=== PATIENT | male | born 1935 | race African-American/Black ===

== ENCOUNTER 2016-07-25 16:57 | Inpatient (IN) | payer MEDICARE, MEDICAID ==
[~2016-07-25] VITALS: Ht 170.2 cm; Wt 78.0 kg
[2016-07-25] MEDS ORDERED: LISI-660 PO (17:55)
[2016-07-25] MEDS ORDERED: FAMO20 PO (17:55)
[2016-07-25 18:01] LABS: GLUCOSE,POINT OF CARE 126 MG/DL (70-110)
[2016-07-25 18:29] LABS: EOSINOPHILS % (AUTO) 7.6 % (1.0-6.0); HEMATOCRIT 35.7 % (41-53); HEMOGLOBIN 11.5 g/dL (13.5-17.5); LYMPHOCYTES # (AUTO) 1.1 K/uL (1.0-4.8); LYMPHOCYTES % (AUTO) 12.6 % (22.0-44.0); MEAN CORPUSCULAR HGB CONC 32.2 G/dL (31.0-37.0); MEAN CORPUSCULAR VOLUME 93 fL (80-100); MONOCYTES # (AUTO) 0.8 K/uL (0.1-1.0); MONOCYTES % (AUTO) 9.1 % (2.0-9.0); NEUTROPHILS # (AUTO) 6.3 K/uL (1.8-7.7); NEUTROPHILS % (AUTO) 70.7 % (40.0-70.0); PLATELET COUNT (AUTO) 373 K/uL (150-450); RED BLOOD CELL COUNT(AUTO) 3.84 MIL/uL (4.50-5.90); RED CELL DISTRIBUTION WIDTH 12.9 % (11.5-14.5); WHITE BLOOD COUNT (AUTO) 8.9 K/uL (4.5-11.0)
[2016-07-25 18:42] LABS: ANION GAP 9 mmol/L (8-16); CARBON DIOXIDE 27 mmol/L (22-29); CHLORIDE 100 mmol/L (98-107); CREATININE 1.07 mg/dL (0.60-1.30); GLOMERULAR FILTR. RATE CALC > 60 mL/min (>60); POTASSIUM 4.6 mmol/L (3.5-5.1); SODIUM SERUM 136 mmol/L (136-145); UREA NITROGEN, BLOOD 17 mg/dL (7-18)
[2016-07-25 18:56] LABS: B-TYPE NATRIURETIC PEPTIDE 15 pg/mL (0-100)
[2016-07-25 19:07] LABS: ALANINE AMINOTRANSFERASE 36 U/L (12-78); ALBUMIN 2.9 g/dL (3.4-5.0); ASPARTATE AMINOTRANSFERASE 19 U/L (15-37); BILIRUBIN,TOTAL 0.3 mg/dL (0.1-1.0); CREATINE KINASE MB 0.7 ng/mL (0-5); CREATINE KINASE, TOTAL 89 U/L (39-308)
[2016-07-25] MEDS ORDERED: ONDANSETRON HCL 4 MG/2 ML VIAL IVP PRN (20:30)
[2016-07-25] MEDS ORDERED: ACETAMINOPHEN 325 MG TABLET PO PRN (20:30)
[2016-07-25 21:41] VITALS: BP 143/65
[2016-07-26] VITALS (7 sets, daily range): BP systolic 108–133; BP diastolic 47–78
[2016-07-26] MEDS: DEXTROSE 5%-0.45% SODIUM CHL 1,000 ML IV SCH ×2 (06:07→21:40)
[2016-07-26] MEDS: HEPARIN SODIUM,PORCINE 5,000 UNITS/ML VIAL SQ SCH ×2 (08:55→21:39)
[2016-07-26] MEDS: LISINOPRIL 5 MG TABLET PO SCH (08:55)
[2016-07-26] MEDS: FAMOTIDINE 20 MG TABLET PO SCH (08:55)
[2016-07-26] MEDS: LevETIRAcetam 500 MG TABLET PO SCH ×2 (08:56→21:40)
[2016-07-26] MEDS: TAMSULOSIN HCL 0.4 MG CAPSULE PO SCH (08:56)
[2016-07-26] MEDS: FINASTERIDE 5 MG TABLET PO SCH (09:00)
[2016-07-27 00:42] VITALS: BP 107/59
[2016-07-27 04:41] VITALS: BP 110/65
[2016-07-27 07:51] VITALS: BP 129/96
[2016-07-27] MEDS: LevETIRAcetam 500 MG TABLET PO SCH ×2 (08:22→20:38)
[2016-07-27] MEDS: FAMOTIDINE 20 MG TABLET PO SCH (08:22)
[2016-07-27] MEDS: LISINOPRIL 5 MG TABLET PO SCH (08:22)
[2016-07-27] MEDS: HEPARIN SODIUM,PORCINE 5,000 UNITS/ML VIAL SQ SCH ×2 (08:22→20:39)
[2016-07-27] MEDS: TAMSULOSIN HCL 0.4 MG CAPSULE PO SCH (08:22)
[2016-07-27] MEDS: FINASTERIDE 5 MG TABLET PO SCH (08:22)
[2016-07-27] MEDS ORDERED: GADOBUTROL 1 MMOL/ML 10 ML VIAL IVP ONE (08:35)
[2016-07-27] MEDS ORDERED: 0.9% SODIUM CHLORIDE 10 ML SYRINGE IVP PRN (16:15)
[2016-07-27 19:22] VITALS: BP 137/80
[2016-07-27] MEDS: DEXTROSE 5%-0.45% SODIUM CHL 1,000 ML IV SCH (21:22)
[2016-07-27 23:01] VITALS: BP 141/75
[2016-07-28 03:23] VITALS: BP 138/85
[2016-07-28 07:53] VITALS: BP 137/77
[2016-07-28] MEDS: LISINOPRIL 5 MG TABLET PO SCH (08:20)
[2016-07-28] MEDS: LevETIRAcetam 500 MG TABLET PO SCH ×2 (08:20→20:02)
[2016-07-28] MEDS: FINASTERIDE 5 MG TABLET PO SCH (08:20)
[2016-07-28] MEDS: TAMSULOSIN HCL 0.4 MG CAPSULE PO SCH (08:20)
[2016-07-28] MEDS: FAMOTIDINE 20 MG TABLET PO SCH (08:20)
[2016-07-28] MEDS: HEPARIN SODIUM,PORCINE 5,000 UNITS/ML VIAL SQ SCH (08:21)
[2016-07-28] MEDS ORDERED: IOVERSOL 350 MG/ML 100 ML VIAL ONE (10:12)
[2016-07-28] MEDS ORDERED: SODIUM CHLORIDE 0.9% 100 ML ONE (10:13)
[2016-07-28] MEDS ORDERED: BARIUM SULFATE 0.1% SUSPENSION 450 ML BOTTLE ONE (10:13)
[2016-07-28 11:30] VITALS: BP 135/80
[2016-07-28 15:33] VITALS: BP 137/85
[2016-07-28 19:52] VITALS: BP 153/88
[2016-07-28] MEDS: DEXTROSE 5%-0.45% SODIUM CHL 1,000 ML IV SCH (20:03)
[2016-07-28 23:00] VITALS: BP 137/87
[2016-07-29 04:37] VITALS: BP 139/82
[2016-07-29 08:00] VITALS: BP 138/72
[2016-07-29] MEDS: TAMSULOSIN HCL 0.4 MG CAPSULE PO SCH (08:15)
[2016-07-29] MEDS: LISINOPRIL 5 MG TABLET PO SCH (08:15)
[2016-07-29] MEDS: LevETIRAcetam 500 MG TABLET PO SCH ×2 (08:15→20:22)
[2016-07-29] MEDS: FINASTERIDE 5 MG TABLET PO SCH (08:15)
[2016-07-29] MEDS: FAMOTIDINE 20 MG TABLET PO SCH (08:15)
[2016-07-29] MEDS: DEXTROSE 5%-0.45% SODIUM CHL 1,000 ML IV SCH (10:35)
[2016-07-29 12:00] VITALS: BP 135/73
[2016-07-29 16:00] VITALS: BP 124/77
[2016-07-29 19:10] VITALS: BP 141/79
[2016-07-29 23:15] VITALS: BP 127/70
[2016-07-30 04:00] VITALS: BP 131/63
[2016-07-30 08:21] VITALS: BP 125/72
[2016-07-30] MEDS: FAMOTIDINE 20 MG TABLET PO SCH (08:29)
[2016-07-30] MEDS: FINASTERIDE 5 MG TABLET PO SCH (08:29)
[2016-07-30] MEDS: LevETIRAcetam 500 MG TABLET PO SCH (08:29)
[2016-07-30] MEDS: TAMSULOSIN HCL 0.4 MG CAPSULE PO SCH (08:29)
[2016-07-30] MEDS: LISINOPRIL 5 MG TABLET PO SCH (08:29)
[2016-07-30] MEDS: DEXTROSE 5%-0.45% SODIUM CHL 1,000 ML IV SCH (10:02)
[2016-07-30 11:42] VITALS: BP 118/64
[2016-07-30] MEDS ORDERED: FINA5TAB41 PO (12:41)
[2016-07-30] MEDS ORDERED: TAMS0.4C32 PO (12:42)
[2016-07-30] MEDS ORDERED: LEVE500T53 PO (12:42)
[2016-11-04] MEDS ORDERED: MOM30 PO (10:14)
[2016-11-04] MEDS ORDERED: ACET-784 PO (10:14)
[2016-11-04] MEDS ORDERED: BISA10S PR (10:14)
== END 2016-07-30 15:10 | DRG 65 ==
LOC: EMS 17:00 → 6N 20:15
PROVIDERS: ADMIT Internal Medicine; ATTEND Internal Medicine
PROC: 4A10X4Z Monitoring of Central Nervous Electrical Activity, External Approach (ICD-10-PCS; principal; 2016-07-27)
DX: I62.9 Nontraumatic intracranial hemorrhage, unspecified (principal); E44.0 Moderate protein-calorie malnutrition; Z68.26 Body mass index [BMI] 26.0-26.9, adult; I10 Essential (primary) hypertension; K59.00 Constipation, unspecified; N40.0 Benign prostatic hyperplasia without lower urinary tract symptoms; E55.9 Vitamin D deficiency, unspecified; G40.909 Epilepsy, unspecified, not intractable, without status epilepticus; N40.1 Benign prostatic hyperplasia with lower urinary tract symptoms; B35.6 Tinea cruris; R26.89 Other abnormalities of gait and mobility; Z79.899 Other long term (current) drug therapy; Z98.890 Other specified postprocedural states; Z91.81 History of falling; Z87.891 Personal history of nicotine dependence; Z86.73 Personal history of transient ischemic attack (TIA), and cerebral infarction without residual deficits; Z80.9 Family history of malignant neoplasm, unspecified; Z82.49 Family history of ischemic heart disease and other diseases of the circulatory system
CPT/HCPCS: 70450; 70553; 71260; 72193; 74160; 82962; 87081; 93005; 95816; 97162; 99285; A9585; J1644; J7050

== ENCOUNTER 2017-05-06 15:33 | Inpatient (IN) | payer MEDICARE, MEDICAID ==
[~2017-05-06] VITALS: Ht 170.2 cm; Wt 60.7 kg
[~2017-05-06 15:33] MED LIST: ACET-784 PO; BISA10S PR; FAMO20 PO; FINA5TAB41 PO; LEVE500T53 PO; LISI-660 PO; MOM30 PO; TAMS0.4C32 PO
[2017-05-06] MEDS ORDERED: VITAD1000 PO (16:04)
[2017-05-06] MEDS ORDERED: ACETAMINOPHEN 500 MG TABLET PO ONE (16:30)
[2017-05-06 17:31] LABS: BASOPHILS % (AUTO) 0.3 % (0.0-2.0); EOSINOPHILS % (AUTO) 10.7 % (1.0-6.0); HEMATOCRIT 31.5 % (41-53); HEMOGLOBIN 10.6 g/dL (13.5-17.5); LYMPHOCYTES # (AUTO) 1.5 K/uL (1.0-4.8); LYMPHOCYTES % (AUTO) 23.8 % (22.0-44.0); MEAN CORPUSCULAR HEMOGLOBIN 31.5 pg (26.0-34.0); MEAN CORPUSCULAR HGB CONC 33.7 G/dL (31.0-37.0); MEAN CORPUSCULAR VOLUME 93 fL (80-100); MONOCYTES # (AUTO) 0.7 K/uL (0.1-1.0); MONOCYTES % (AUTO) 10.1 % (2.0-9.0); NEUTROPHILS # (AUTO) 3.6 K/uL (1.8-7.7); NEUTROPHILS % (AUTO) 55.1 % (40.0-70.0); PLATELET COUNT (AUTO) 320 K/uL (150-450); RED BLOOD CELL COUNT(AUTO) 3.37 MIL/uL (4.50-5.90); RED CELL DISTRIBUTION WIDTH 13.5 % (11.5-14.5); WHITE BLOOD COUNT (AUTO) 6.5 K/uL (4.5-11.0)
[2017-05-06 17:44] LABS: ANION GAP 6 mmol/L (8-16); CARBON DIOXIDE 31 mmol/L (22-29); CHLORIDE 101 mmol/L (98-107); CREATININE 0.96 mg/dL (0.60-1.30); GLOMERULAR FILTR. RATE CALC > 60 mL/min (>60); POTASSIUM 4.2 mmol/L (3.5-5.1); SODIUM SERUM 138 mmol/L (136-145); UREA NITROGEN, BLOOD 20 mg/dL (7-18)
[2017-05-06 18:00] LABS: B-TYPE NATRIURETIC PEPTIDE 22 pg/mL (0-100)
[2017-05-06 18:08] LABS: ALANINE AMINOTRANSFERASE 21 U/L (12-78); ASPARTATE AMINOTRANSFERASE 15 U/L (15-37); BILIRUBIN,TOTAL 0.3 mg/dL (0.1-1.0); CREATINE KINASE MB 1.7 ng/mL (0-5); CREATINE KINASE, TOTAL 249 U/L (39-308); TOTAL PROTEIN, SERUM 7.7 g/dL (6.4-8.2)
[2017-05-06] MEDS ORDERED: ACETAMINOPHEN 325 MG TABLET PO PRN ×2 (21:00→23:30)
[2017-05-06] MEDS ORDERED: 0.9% SODIUM CHLORIDE 10 ML SYRINGE IVP PRN ×2 (21:00→23:30)
[2017-05-06] MEDS ORDERED: ONDANSETRON HCL 4 MG/2 ML VIAL IVP PRN ×2 (21:00→23:30)
[2017-05-06 23:05] VITALS: BP 138/71
[2017-05-06] MEDS ORDERED: BISACODYL 10 MG RECTAL RECTAL SUPPOSITORY PR PRN (23:30)
[2017-05-07 00:30] VITALS: BP 150/78
[2017-05-07] MEDS ORDERED: SODIUM CHLORIDE 0.9% 250 ML IV ONE (01:40)
[2017-05-07] MEDS: LevETIRAcetam 500 MG in DEXTROSE 5%-WATER 100 ML IV SCH ×3 (01:45→23:24)
[2017-05-07 04:00] VITALS: BP 136/74
[2017-05-07 05:57] LABS: ALANINE AMINOTRANSFERASE 22 U/L (12-78); ALBUMIN 2.9 g/dL (3.4-5.0); ANION GAP 4 mmol/L (8-16); ASPARTATE AMINOTRANSFERASE 13 U/L (15-37); BILIRUBIN,TOTAL 0.5 mg/dL (0.1-1.0); CALCIUM, TOTAL 9.2 mg/dL (8.8-10.5); CARBON DIOXIDE 32 mmol/L (22-29); CHLORIDE 102 mmol/L (98-107); CHOL/HDL RATIO 2.8 (4.2-7.3); CREATININE 1.06 mg/dL (0.60-1.30); GLOMERULAR FILTR. RATE CALC > 60 mL/min (>60); PHOSPHORUS 3.7 mg/dL (2.5-4.9); POTASSIUM 4.1 mmol/L (3.5-5.1); SODIUM SERUM 138 mmol/L (136-145); TOTAL PROTEIN, SERUM 7.3 g/dL (6.4-8.2); UREA NITROGEN, BLOOD 18 mg/dL (7-18)
[2017-05-07 06:24] LABS: BASOPHILS % (AUTO) 0.3 % (0.0-2.0); EOSINOPHILS % (AUTO) 10.2 % (1.0-6.0); HEMATOCRIT 30.6 % (41-53); HEMOGLOBIN 10.4 g/dL (13.5-17.5); LYMPHOCYTES # (AUTO) 1.5 K/uL (1.0-4.8); MEAN CORPUSCULAR HEMOGLOBIN 31.6 pg (26.0-34.0); MEAN CORPUSCULAR HGB CONC 33.9 G/dL (31.0-37.0); MEAN CORPUSCULAR VOLUME 93 fL (80-100); MONOCYTES # (AUTO) 0.6 K/uL (0.1-1.0); MONOCYTES % (AUTO) 8.7 % (2.0-9.0); NEUTROPHILS # (AUTO) 4.2 K/uL (1.8-7.7); NEUTROPHILS % (AUTO) 59.8 % (40.0-70.0); PLATELET COUNT (AUTO) 308 K/uL (150-450); RED BLOOD CELL COUNT(AUTO) 3.29 MIL/uL (4.50-5.90); RED CELL DISTRIBUTION WIDTH 13.1 % (11.5-14.5); WHITE BLOOD COUNT (AUTO) 7.1 K/uL (4.5-11.0)
[2017-05-07 08:00] VITALS: BP 121/70
[2017-05-07] MEDS: CHOLECALCIFEROL (VIT D3) 1,000 UNITS TABLET PO SCH (08:32)
[2017-05-07] MEDS: PANTOPRAZOLE SODIUM 40 MG/VIAL IVP SCH (08:33)
[2017-05-07] MEDS: TAMSULOSIN HCL 0.4 MG CAPSULE PO SCH (09:14)
[2017-05-07] MEDS: FINASTERIDE 5 MG TABLET PO SCH (09:14)
[2017-05-07] MEDS ORDERED: MAGNESIUM SULFATE 2 GM in DEXTROSE 5%-WATER 50 ML IV PRN (11:45)
[2017-05-07] MEDS ORDERED: MAGNESIUM OXIDE 400 MG TABLET PO PRN (11:45)
[2017-05-07] MEDS ORDERED: MAGNESIUM SULFATE 4 GM/WATER 100 ML IV PRN (11:45)
[2017-05-07 12:00] VITALS: BP 116/72
[2017-05-07] MEDS ORDERED: GADOBUTROL 1 MMOL/ML 10 ML VIAL IVP ONE (12:28)
[2017-05-07 16:00] VITALS: BP 107/57
[2017-05-07 20:00] VITALS: BP 134/78
[2017-05-08] VITALS (7 sets, daily range): BP systolic 119–138; BP diastolic 67–86
[2017-05-08 05:17] LABS: ANION GAP 2 mmol/L (8-16); CALCIUM, TOTAL 8.8 mg/dL (8.8-10.5); CARBON DIOXIDE 33 mmol/L (22-29); CHLORIDE 103 mmol/L (98-107); CREATININE 1.15 mg/dL (0.60-1.30); GLOMERULAR FILTR. RATE CALC > 60 mL/min (>60); POTASSIUM 4.8 mmol/L (3.5-5.1); SODIUM SERUM 138 mmol/L (136-145); UREA NITROGEN, BLOOD 17 mg/dL (7-18)
[2017-05-08 05:40] LABS: EOSINOPHILS % (AUTO) 13.6 % (1.0-6.0); HEMATOCRIT 29.6 % (41-53); HEMOGLOBIN 10.1 g/dL (13.5-17.5); LYMPHOCYTES # (AUTO) 1.6 K/uL (1.0-4.8); LYMPHOCYTES % (AUTO) 23.2 % (22.0-44.0); MEAN CORPUSCULAR HEMOGLOBIN 31.5 pg (26.0-34.0); MEAN CORPUSCULAR VOLUME 93 fL (80-100); MONOCYTES # (AUTO) 0.6 K/uL (0.1-1.0); MONOCYTES % (AUTO) 9.1 % (2.0-9.0); NEUTROPHILS # (AUTO) 3.7 K/uL (1.8-7.7); NEUTROPHILS % (AUTO) 54.1 % (40.0-70.0); PLATELET COUNT (AUTO) 310 K/uL (150-450); RED BLOOD CELL COUNT(AUTO) 3.19 MIL/uL (4.50-5.90); RED CELL DISTRIBUTION WIDTH 13.2 % (11.5-14.5); WHITE BLOOD COUNT (AUTO) 6.8 K/uL (4.5-11.0)
[2017-05-08] MEDS: FINASTERIDE 5 MG TABLET PO SCH (08:26)
[2017-05-08] MEDS: PANTOPRAZOLE SODIUM 40 MG/VIAL IVP SCH (08:26)
[2017-05-08] MEDS: TAMSULOSIN HCL 0.4 MG CAPSULE PO SCH (08:26)
[2017-05-08] MEDS: CHOLECALCIFEROL (VIT D3) 1,000 UNITS TABLET PO SCH (08:27)
[2017-05-08] MEDS: LevETIRAcetam 500 MG in DEXTROSE 5%-WATER 100 ML IV SCH (11:07)
[2017-05-09] MEDS: LevETIRAcetam 500 MG in DEXTROSE 5%-WATER 100 ML IV SCH ×2 (00:40→11:57)
[2017-05-09 04:51] VITALS: BP 130/66
[2017-05-09 07:05] LABS: BASOPHILS % (AUTO) 0.3 % (0.0-2.0); EOSINOPHILS % (AUTO) 10.9 % (1.0-6.0); HEMATOCRIT 30.4 % (41-53); HEMOGLOBIN 10.3 g/dL (13.5-17.5); LYMPHOCYTES # (AUTO) 1.8 K/uL (1.0-4.8); LYMPHOCYTES % (AUTO) 23.6 % (22.0-44.0); MEAN CORPUSCULAR HEMOGLOBIN 31.3 pg (26.0-34.0); MEAN CORPUSCULAR HGB CONC 33.7 G/dL (31.0-37.0); MEAN CORPUSCULAR VOLUME 93 fL (80-100); MONOCYTES # (AUTO) 0.7 K/uL (0.1-1.0); MONOCYTES % (AUTO) 9.1 % (2.0-9.0); NEUTROPHILS # (AUTO) 4.2 K/uL (1.8-7.7); NEUTROPHILS % (AUTO) 56.1 % (40.0-70.0); PLATELET COUNT (AUTO) 319 K/uL (150-450); RED BLOOD CELL COUNT(AUTO) 3.28 MIL/uL (4.50-5.90); RED CELL DISTRIBUTION WIDTH 13.1 % (11.5-14.5); WHITE BLOOD COUNT (AUTO) 7.5 K/uL (4.5-11.0)
[2017-05-09 07:12] VITALS: BP 125/82
[2017-05-09 07:31] LABS: ALANINE AMINOTRANSFERASE 17 U/L (12-78); ALBUMIN 2.9 g/dL (3.4-5.0); ANION GAP 6 mmol/L (8-16); ASPARTATE AMINOTRANSFERASE 13 U/L (15-37); BILIRUBIN,TOTAL 0.4 mg/dL (0.1-1.0); CALCIUM, TOTAL 9.1 mg/dL (8.8-10.5); CARBON DIOXIDE 30 mmol/L (22-29); CHLORIDE 101 mmol/L (98-107); CREATININE 0.98 mg/dL (0.60-1.30); GLOMERULAR FILTR. RATE CALC > 60 mL/min (>60); POTASSIUM 3.9 mmol/L (3.5-5.1); SODIUM SERUM 137 mmol/L (136-145); TOTAL PROTEIN, SERUM 7.3 g/dL (6.4-8.2); UREA NITROGEN, BLOOD 18 mg/dL (7-18)
[2017-05-09] MEDS: PANTOPRAZOLE SODIUM 40 MG/VIAL IVP SCH (08:18)
[2017-05-09] MEDS: TAMSULOSIN HCL 0.4 MG CAPSULE PO SCH (08:18)
[2017-05-09] MEDS: FINASTERIDE 5 MG TABLET PO SCH (08:18)
[2017-05-09] MEDS: CHOLECALCIFEROL (VIT D3) 1,000 UNITS TABLET PO SCH (08:18)
[2017-05-09 11:31] VITALS: BP 143/89
[2017-05-09] MEDS ORDERED: LEVE500T53 PO (12:48)
== END 2017-05-09 13:30 | DRG 65 ==
LOC: EMS 15:34 → 6N 21:45 → ICU 23:55 → 5S 05-08 12:00 → 5N 05-08 18:08
PROVIDERS: ADMIT Internal Medicine; ATTEND Internal Medicine
DX: I61.9 Nontraumatic intracerebral hemorrhage, unspecified (principal); Q87.1 Congenital malformation syndromes predominantly associated with short stature; D64.9 Anemia, unspecified; W18.39XA Other fall on same level, initial encounter; G40.909 Epilepsy, unspecified, not intractable, without status epilepticus; W18.30XA Fall on same level, unspecified, initial encounter; I10 Essential (primary) hypertension; I67.2 Cerebral atherosclerosis; R62.7 Adult failure to thrive; R53.81 Other malaise; Y93.89 Activity, other specified; Y92.89 Other specified places as the place of occurrence of the external cause; Z86.73 Personal history of transient ischemic attack (TIA), and cerebral infarction without residual deficits; Y99.8 Other external cause status; Z22.322 Carrier or suspected carrier of Methicillin resistant Staphylococcus aureus
CPT/HCPCS: 70450; 70553; 72125; 83735; 84100; 87081; 92610; 93005; 93306; 97161; 97166; 99285; A9585; C9113; J0712; J3475; J7050; J7060